=== PATIENT | male | born 1995 | race Caucasian/White ===

== ENCOUNTER 2018-07-05 20:54 | Emergency (ER) | payer OTHER ==
[2018-07-05] MEDS ORDERED: PENICILLIN G BENZATHINE 1.2 MILLION UNIT/2 ML DISP.SYRIN IM ONE (22:35)
--- NOTE | 2018-07-05 22:42 | ER Document Report ---
ED General - General Chief Complaint: Fever Stated Complaint: FEVER, RASH, NAUSEA, SORE THROAT Time Seen by Provider: 07/05/18 22:29 Notes: Patient is a 23-year-old male presents with complaint of sore throat fever and headache. He says he initially had a slight headache with fever that started 5 days ago. He was a diagnosed with a viral illness to him to do fluids and Tylenol for fever. Two days later he developed a sore throat and now today has developed a rash on his torso. He denies any neck pain or neck stiffness. No vomiting. No abdominal pain. No weakness or numbness into the extremities. He says he is pretty sure he received his vaccinations as a child. He has no chronic medical problems and is otherwise healthy. - Related Data Allergies/Adverse Reactions: No Known Allergies Allergy (Unverified 07/05/18 21:33) Past Medical History - Social History Smoking Status: Never Smoker Frequency of alcohol use: Occasional Drug Abuse: None Family History: Reviewed & Not Pertinent Patient has suicidal ideation: No Patient has homicidal ideation: No Renal/ Medical History: Denies: Hx Peritoneal Dialysis Review of Systems - Review of Systems Notes: My Normal Review Basic REVIEW OF SYSTEMS: CONSTITUTIONAL : Fever EENT: Throat CARDIOVASCULAR: Denies chest pain. RESPIRATORY: Denies cough, cold, or chest congestion. Denies shortness of breath, difficulty breathing, or wheezing. GASTROINTESTINAL: Denies abdominal pain. Denies nausea, vomiting, or diarrhea. MUSCULOSKELETAL: Denies neck or back pain or joint pain or swelling. SKIN: Rash NEUROLOGICAL: Denies altered mental status or loss of consciousness. Has a headache. Denies weakness or paralysis or loss of use of either side. Denies problems with gait or speech. Denies sensory or motor loss. ALL OTHER SYSTEMS REVIEWED AND NEGATIVE. Physical Exam - Vital signs Vitals: Temp Pulse Resp BP Pulse Ox 100.1 F 87 18 135/62 H 95 07/05/18 21:19 07/05/18 21:19 07/05/18 21:19 07/05/18 21:19 07/05/18 21:19 - Notes Notes: General Appearance: Well nourished, alert, cooperative, no acute distress, no obvious discomfort. Well-appearing. Not septic or toxic appearing. No stridor or difficulty breathing. Vitals: reviewed, See vital signs table. Head: no swelling or tenderness to the head Eyes: PERRL, EOMI, Conjuctiva clear Mouth: No decreasd moisture Throat: Tonsil enlargement and erythema. No exudative process. Uvula is midline. No swelling in the peritonsillar space. Neck: Supple, no neck tenderness, patient does have some submandibular and anterior cervical lymphadenopathy bilaterally. Lungs: No wheezing, No rales, No rhonci, No accessory muscle use, good air exchange bilaterally. Heart: Normal rate, Regular rythm, No murmur, no rub Abdomen: Normal BS, soft, No rigidity, No abdominal tenderness, No guarding, no rebound, no abdominal masses, no organomegaly Extremities: strength 5/5 in all extremities, good pulses in all extremities, no swelling or tenderness in the extremities, no edema. Skin: Patient has a macular papular rash that is easily blanchable nonpainful over the torso. Rash looks very consistent with that of rash seems current fever. Neuro: speech clear, oriented x 3, normal affect, responds appropriately to questions. Course - Re-evaluation Re-evalutation: 07/06/18 02:22 Patient's physical exam findings and history consistent with that of scarlet fever. Patient is not toxic or septic appearing. I do not suspect meningitis. He has no bruising or ecchymosis. Symptoms have been ongoing for 5 days and he is well-appearing without any distress. He has full range of motion of his neck without stiffness. I will give him a dose of penicillin. I encouraged him to return to the ER if he has recurrent fevers not respond to Tylenol, vomiting, or difficulty breathing or swallowing, or any worsening of his symptoms. I encouraged him to follow-up with his doctor in 2 days for close reevaluation. Patient agrees with plan and will be discharged home. Dictation of this chart was performed using voice recognition software; therefore, there may be some unintended grammatical errors. - Vital Signs Vital signs: Temp Pulse Resp BP Pulse Ox 99.1 F 88 14 126/71 H 98 07/05/18 22:54 07/05/18 22:54 07/05/18 22:54 07/05/18 22:54 07/05/18 22:54 Discharge - Discharge Clinical Impression: Scarlet fever Condition: Good Disposition: HOME, SELF-CARE Additional Instructions: You have a presentation consistent with scarlet fever which is a strep throat infection with an associated rash. Treatment is with Penicillin which you received in a shot form her. You should be feeling much better within 36 hours. Please follow up with your doctor within 48 hours for reevaluation. please return to the ER immediately if you feel that you are worsening in any way, have recurrent high fevers, difficulty breathing, difficulty swallowing, or feel unwell in any way. Forms: Return to Work
[2018-07-05 22:55] VITALS: BP 126/71
== END 2018-07-05 23:09 | disposition home or self-care (01) ==
LOC: ER 20:54
DX: A38.9 Scarlet fever, uncomplicated (principal); R50.9 Fever, unspecified; R21 Rash and other nonspecific skin eruption; R11.0 Nausea; J02.9 Acute pharyngitis, unspecified
CPT/HCPCS: 99283; 96372; J0561